=== PATIENT | female | born 1985 | race Caucasian/White ===

== ENCOUNTER 2019-11-11 10:20 | Emergency (ER) | payer BC, SELFPAY ==
--- NOTE | ~2019-11-11 | CT_ITS ---
EXAMINATION: CTA brain carotid EXAM DATE: 11/11/2019 13:07 INDICATION: Dizziness, headache. TECHNIQUE: Noncontrast head CT. Spiral CTA of the carotid arteries was performed with intravenous i njection 100 cc of Omnipaque 350. Axial, coronal, sagittal reformatted images reviewed. Additional r eformatted images created on dedicated 3-D workstation. NASCET comparable standard used to assess th e degree of arterial stenosis. Spiral CT angiogram cerebral arteries performed with the same intrave nous injection of contrast. Source images of the brain CTA transferred to dedicated workstation for 3 -D rotational image creation. Coronal, sagittal maximum intensity pixel images also reviewed. The d ose-length product (DLP) for this examination was 1595.71 mGy-cm. The exposure was tailored accordi ng to patient size, and iterative reconstruction (ASIR) was used as additional dose reduction techniq ue. There is no prior study for comparison. FINDINGS: There is 0% carotid stenosis bilaterally. Carotid siphons are unremarkable. The vertebral a rteries are codominant. There is no carotid or vertebral basilar arterial dissection or fibromuscula r dysplasia. There are no cerebral artery aneurysms. There is symmetric cerebral artery arborization. The sagittal, transverse and sigmoid sinuses enhance normally, no venous sinus thrombosis. Internal cerebral veins also enhance normally. There is no acute intraparenchymal hemorrhage. No evidence of intraparenchymal brain mass lesion. N o evidence of acute infarction. There is no mass effect or midline shift. There is no obstructive hyd rocephalus suspected. There are no extra-axial collections. There are no calvarial acute fractures. There are no areas of abnormal enhancement on the post contrast images. IMPRESSION: 1. No cervical arterial dissection or cerebral artery aneurysm. 2. Carotid bulbs 0% stenosis bilaterally. Reviewed, dictated and finalized at location A.
--- NOTE | 2019-11-11 10:49 | ED.DIZZY ---
HPI - Dizziness General Chief Complaint: Dizziness Stated Complaint: dizziness Time Seen by Provider: 11/11/19 10:29 Source: patient Mode of arrival: ambulatory Limitations: no limitations History of Present Illness HPI Narrative: A 34 y/o female presents to the ED with c/o dizziness. Pt states that she was rocking her child at 0930 today when she suddenly became severely dizzy. She notes that the episode of dizziness lasted 30 seconds and was described as a room spinning sensation. After the dizziness resolved, she became lightheaded and has been since. She reports nausea and slight NGUYEN, but denies vomiting, fever, chills, and cough. Pt does not note any aggravating or alleviating factors for her symptoms and denies having these types of symptoms before. She states that both of her children are sick with cold symptoms at home. MD elicited complaint: dizziness Onset (ago): hour(s) (1) Timing: sudden onset Description: room spinning History of similar symptoms: No Exacerbating factors: nothing Relieving factors: nothing Associated symptoms: nausea and other (Slight NGUYEN, lightheadedness) Related Data Allergies Allergy/AdvReac Type Severity Reaction Status Date / Time erythromycin base Allergy Unknown Hives Verified 09/09/18 10:16 Review of Systems Review of Systems: All systems reviewed & are unremarkable except as noted in HPI and below Constitutional: Constitutional: Denies chills and Denies fever(s) Cardiovascular: Cardiovascular: Reports lightheadedness Respiratory: Respiratory: Denies cough Gastrointestinal: Gastrointestinal: Reports nausea and Denies vomiting Neurologic: Reports dizziness and Reports headache(s) [facility] Past Medical History Medical History (Updated 11/11/19 @ 12:59 by Gladys Gloria MD) Healthy adult Surgical History Surgical History (Updated 11/11/19 @ 11:12 by Radha Wilkes) History of section History of tonsillectomy Family History Family History Father Hypertension Mother Hypertension Social History Social History Smoking status: Never smoker Alcohol intake: never Gender identity (if verbalized by the patient): Female Exam Const: General: no acute distress and well developed Orientation/consciousness: oriented to person, oriented to place, oriented to time and patient oriented x3 HENMT: Head: normocephalic Ears: external ears normal General nose exam: Normal external nose present Eyes: General: appearance normal, both eyes and all related structures Conjunctivae: conjunctivae normal Neck: Neck: normal visual inspection and full ROM Chest: Chest palpation & inspection: normal inspection of the chest and no tenderness Resp: Effort & Inspection: normal respiratory effort Auscultation: clear to auscultation bilaterally Cardio: Rate: regular rate Rhythm: regular rhythm GI: GI Palp: No abdominal tenderness and Yes Soft to palpation Skin: General skin exam: normal color and turgor normal Neuro: General: oriented to person, oriented to place, oriented to time and patient oriented x3 Cranial nerves: Yes CN's II-XII intact bilaterally Cognition (Neuro): normal cognition Speech: normal speech Motor exam (neuro): 5/5 motor strength present throughout Sensory Exam: normal sensation Coordination: [id number] test normal and [id number] test normal Extrem: General: normal to inspection, full ROM and no pedal edema Psych: Appearance: grossly normal Mental Status: mental status grossly normal Affect: normal affect Course Vital Signs Vital signs: Vital Signs Temperature 36.7 C 11/11/19 10:50 Pulse Rate 67 11/11/19 10:50 Respiratory Rate 12 11/11/19 10:50 Blood Pressure 122/71 11/11/19 10:50 Pulse Oximetry 98 11/11/19 10:50 Temperature 36.7 C 11/11/19 10:50 Pulse Rate 67 11/11/19 14:02 Respiratory Rate 13 11/11/19 14:02
[2019-11-11 10:50] VITALS: BP 122/71; PULSE 67; RESP 12; TEMP 36.7; O2SAT 98
--- NOTE | 2019-11-11 11:06 | ECG_ITS ---
Measurements Intervals [place] Rate: 67 P: 9 WA: 138 QRS: 46 QRSD: 81 T: 22 QT: 381 QTc: 402 Interpretive Statements SINUS RHYTHM NORMAL ECG Electronically Signed On 11-11-2019 11:38:32 CDT by Alex Redding D.O.
[2019-11-11 11:34] LABS: Basophils Percent Auto 0.3 % (0.2-1.2); Eosinophils Absolute Auto 0.1 K/mm3 (0-0.3); Eosinophils Percent Auto 1.1 % (0-4.4); Hematocrit 39.4 % (37.0-47.0); Hemoglobin 12.9 g/dL (12.0-15.0); Immature Granulocyte Absolute 0.02 K/mm3 (0.00-0.031); Immature Granulocyte Percent A 0.3 % (0-0.5); Lymphocytes Absolute Auto 2.05 K/mm3 (0.9-3.2); Lymphocytes Percent Auto 28.3 % (18.3-44.2); Mean Corpuscular HGB Conc 32.7 g/dl (32-36); Mean Corpuscular Hemoglobin 29.6 pg (26-34); Mean Corpuscular Volume 90.4 fl (80-100); Mean Platelet Volume 9.9 fl (7.4-10.4); Monocytes Absolute Auto 0.4 K/mm3 (0.1-0.6); Monocytes Percent Auto 5.7 % (2.6-8.5); Neutrophils Absolute Auto 4.7 K/mm3 (1.3-6.7); Neutrophils Percent Auto 64.3 % (45.5-73.1); Platelet Count Result 305 k/mm3 (150-375); Red Blood Count 4.36 M/mm3 (4.2-5.4); Red Cell Distribution Width 12.8 % (11.5-14.5); White Blood Count 7.3 K/mm3 (4.5-10.0)
[2019-11-11 11:45] LABS: Blood Urea Nitrogen 11 mg/dL (7-17); Calcium 9.2 mg/dL (8.4-10.2); Carbon Dioxide 27 mmol/L (22-30); Chloride 105 mmol/L (98-107); Estimated Glomerular Filt Rate > 60; Glucose 103 mg/dL (65-105); Sodium 139 mmol/L (137-145)
[2019-11-11 12:23] LABS: Add Urine Microscopic? YES; Appearance Urine Clear (Clear); Bacteria Urine Trace /hpf; Bilirubin Urine Negative (Negative); Blood Urine 1+ (Negative); Color Urine Straw (Yellow); Glucose Urine UA Negative (Negative); Ketones Urine Negative (Negative); Leukocyte Esterase Ur Negative LEU/UL (Negative); Nitrate Urine Negative (Negative); Protein Urine Negative (Negative); RBC Urine 0-2 /hpf (0-2); Specific Grav Ur 1.008 (1.001-1.035); Squamous Epithelial Cell Urine Many /hpf (Few); Urobilinogen Urine Negative mg/dL (<2.0); WBC Urine 0-3 /hpf
[2019-11-11] MEDS: MECLIZINE HCL 25 MG TABLET PO (12:53)
[2019-11-11 14:02] VITALS: BP 123/70; PULSE 67; RESP 13; O2SAT 98
== END 2019-11-11 14:27 | disposition home or self-care (01) ==
PROVIDERS: Emergency Provider Emergency Medicine; PCP Family Medicine
DX: R42 Dizziness and giddiness (principal)
CPT/HCPCS: 36415; 70496; 70498; 80048; 81001; 81025; 85025; 93005; 99284; A9270; Q9967

== ENCOUNTER 2021-03-26 07:06 | Outpatient (CLI) | payer BC, SELFPAY ==
[2021-03-29 07:05] LABS: Progesterone 22.2 ng/mL (***)
== END 2021-03-26 07:07 | disposition home or self-care (01) ==
PROVIDERS: PCP Family Medicine; Visit Provider Obstetrics & Gynecology
DX: Z31.41 Encounter for fertility testing (principal)
CPT/HCPCS: 36415; 84144

== ENCOUNTER 2021-03-28 18:34 | Emergency (ER) | payer BC, SELFPAY ==
[2021-03-28 18:42] VITALS: BP 121/92; PULSE 63; RESP 16; TEMP 36.5; O2SAT 100
--- NOTE | 2021-03-28 18:56 | ED.SKABFB ---
HPI - Skin/Abscess/Foreign Bdy General Chief complaint: Skin/Abscess/Foreign Body Stated complaint: Rash Time Seen by Provider: 03/28/21 18:46 Source: patient and RN notes reviewed Mode of arrival: ambulatory Limitations: no limitations History of Present Illness HPI narrative: Patient presents today complaining of 3-day history of rash that is and has been worsening since onset. Rash started 2 days after she was pulling weeds outside and had been pulling poison adriano. The rash is now spreading up her neck and onto her face as well as her extremities and trunk. She has been using Benadryl, calamine lotion, hydrocortisone at home without relief. MD complaint: rash Related Data Home Medications Medication Instructions Recorded Confirmed metformin 1,000 mg PO DAILY 03/28/21 03/28/21 Allergies Allergy/AdvReac Type Severity Reaction Status Date / Time erythromycin base Allergy Unknown Hives Verified 03/28/21 18:45 Review of Systems Review of Systems: CONSTITUTIONAL: Denies body aches, fever, chills, or sweats. EYES: Denies visual changes, redness, or discharge. ENT: Denies rhinorrhea, congestion, sore throat, or otalgia. CARDIOVASCULAR: Denies chest pain, palpitations, or edema. RESPIRATORY: Denies cough or dyspnea. GASTROINTESTINAL: Denies abdominal pain, nausea, vomiting, or diarrhea. GENITOURINARY: Denies dysuria or hematuria. SKIN: Denies wounds.+ Pruritic rash MUSCULOSKELETAL: Denies back pain, joint pain, or myalgia. NEUROLOGIC: Denies headache, numbness, tingling, or weakness. PSYCH: Denies depression or anxiety. [facility] Past Medical History Medical History Healthy adult Surgical History Surgical History History of section History of tonsillectomy Family History Family History Father Hypertension Mother Hypertension Social History Social History Smoking status: Never smoker Alcohol intake: never Gender identity (if verbalized by the patient): Female Comments At time of signature, I have reviewed and agree with nursing past medical, surgical, social and family history unless otherwise noted. Please see nursing chart for further information. There is no relevant family history pertinent to the presenting complaint Exam Narrative: GENERAL: Well-appearing, well-nourished, and in no acute distress. HEAD: Normocephalic, atraumatic. EYES: EOMI. No redness or drainage. Conjunctivae normal. ENT: Mucous membranes pink and moist. NECK: Normal AROM. CHEST: No respiratory distress. EXTREMITIES: Normal range of motion. No edema. SKIN: Warm, dry. Capillary refill normal. Normal skin turgor. Erythematous maculopapular rash to arms, upper legs, large patch to the lower abdomen and back, upper chest and neck, bilateral cheeks, forehead, and right jewish. NEURO: No focal deficits. Alert and oriented x3. Gait steady. PSYCH: Normal affect. No signs of depression or anxiety. Course Vital Signs Vital signs: Vital Signs Temperature 97.7 F 03/28/21 18:42 Pulse Rate 63 03/28/21 18:42 Respiratory Rate 16 03/28/21 18:42 Blood Pressure 121/92 H 03/28/21 18:42 Pulse Oximetry 100 03/28/21 18:42 Temperature 97.7 F 03/28/21 18:42 Pulse Rate 63 03/28/21 18:42 Respiratory Rate 16 03/28/21 18:42 Blood Pressure 121/92 H 03/28/21 18:42 Pulse Oximetry 100 03/28/21 18:42 Reviewed. Pt has been instructed to follow up with her PCP regarding her elevated blood pressure today. MDM - Skin/Abscess/Foreign Bdy Differential Diagnosis Differential diagnosis: Likely urticaria, cellulitis, eczema, insect bites, impetigo and contact dermatitis Critical Care Time Critical Care Time Critical Care Time: No Discharge Plan Discharge Clin
== END 2021-03-28 18:55 | disposition home or self-care (01) ==
PROVIDERS: Emergency Provider Nurse Practitioner; PCP Family Medicine
DX: L23.7 Allergic contact dermatitis due to plants, except food (principal); E28.2 Polycystic ovarian syndrome
CPT/HCPCS: 99213; G0463

== ENCOUNTER 2021-05-04 10:46 | Outpatient (CLI) | payer BC, SELFPAY ==
--- NOTE | ~2021-05-04 | US_ITS ---
EXAMINATION: US OB <=14 wk fetus w TV EXAM DATE: 05/04/2021 11:24 INDICATION: with hx of infertility. . 1st trimester. TECHNIQUE: Pelvic obstetrical transabdominal sonogram was performed by a technologist. There are mu ltiple grayscale and Doppler images available for interpretation. There are no earlier studies of th is gestation for comparison. FINDINGS: Patient has a bicornuate uterus with gestation sac identified in the right endometrial cavi ty. Gestation sac has somewhat flattened shape at 0.7 x 1.8 x 0.6 cm, with 1.0 cm mean sac diameter c orresponding to estimated gestational age by ultrasound of 5 weeks 4 days. Yolk sac is identified. There is no sonographic evidence of subchorionic hemorrhage. Could not confirm a viable pole a t this time. Left ovary morphologically normal. IMPRESSION: 1. Early intrauterine gestation sac. Can't confirm viable . Consider 1-2 week follow-up pelv ic sonogram. 2. Bicornuate uterus. I discussed this case with the patient in my office at conclusion of exam. Reviewed, dictated and finalized at location A. IMPRESSION: 1. Early intrauterine gestation sac. Can't confirm viable . Consider 1 -2 week follow-up pelvic sonogram. 2. Bicornuate uterus. I discussed this case with the patient in my office at conclusion of exam.
== END 2021-05-04 10:47 | disposition home or self-care (01) ==
LOC: ANHIMG 10:49
PROVIDERS: PCP Family Medicine; Visit Provider Obstetrics & Gynecology Gynecology
DX: O09.01 Supervision of pregnancy with history of infertility, first trimester (principal); O34.01 Maternal care for unspecified congenital malformation of uterus, first trimester; Q51.3 Bicornate uterus
CPT/HCPCS: 76801; 76817

== ENCOUNTER 2021-07-05 08:05 | Outpatient (RCR) | payer BC, SELFPAY ==
[2021-06-01 09:26] LABS: Beta HCG Quantitative 201.75 mIU/ML
[2021-06-15 14:09] LABS: Beta HCG Quantitative 26.18 mIU/ML
[2021-06-22 08:50] LABS: Beta HCG Quantitative 7.44 mIU/ML
[2021-07-05 11:55] LABS: Beta HCG Quantitative < 2.39 mIU/ML
== END 2021-08-09 23:59 | disposition home or self-care (01) ==
LOC: ANHLAB 08:05
PROVIDERS: PCP Family Medicine; Visit Provider Obstetrics & Gynecology
DX: O03.9 Complete or unspecified spontaneous abortion without complication (principal)
CPT/HCPCS: 36415; 84702

== ENCOUNTER 2022-06-22 06:48 | Outpatient (CLI) | payer BC, SELFPAY ==
[2022-06-22 07:38] LABS: Alanine Aminotransferase 13 U/L (6-35); Alkaline Phosphatase 52 U/L (38-126); Anion Gap 7 mmol/L (8-16); Aspartate Amino Transferase 25 U/L (14-36); Bilirubin,Total 0.4 mg/dL (0.2-1.3); Blood Urea Nitrogen 9 mg/dL (7-17); Calcium 8.8 mg/dL (8.4-10.2); Carbon Dioxide 27 mmol/L (22-30); Chloride 104 mmol/L (98-107); Cholesterol 173 mg/dL (0-200); Estimated Glomerular Filt Rate > 60; Glucose 93 mg/dL (65-110); HDL Direct 65 mg/dL; Potassium 4.2 mmol/L (3.4-5.0); Sodium 138 mmol/L (137-145); Triglycerides 41 mg/dL (<150)
[2022-06-22 07:42] LABS: Amorphous Sediment Urine Few; Appearance Urine Slightly Cloudy (Clear); Bilirubin Urine Negative (Negative); Blood Urine Negative (Negative); Color Urine Yellow (Yellow); Glucose Urine UA Negative (Negative); Ketones Urine Negative (Negative); Leukocyte Esterase Ur Negative LEU/UL (NEGATIVE); Nitrate Urine Negative (Negative); Protein Urine Trace mg/dL (Negative); Squamous Epithelial Cell Urine Few /hpf (Few); Urobilinogen Urine 0.2 mg/dL (<2.0); WBC Urine 0-3 /hpf (0-3); pH Urine 7.5 (5.0-9.0)
[2022-06-22 07:49] LABS: LDL Cholesterol Direct 83 mg/dL
[2022-06-22 07:54] LABS: Add Urine Microscopic? YES
[2022-06-22 08:18] LABS: Basophils Percent Auto 0.4 % (0.2-1.2); Eosinophils Absolute Auto 0.1 K/mm3 (0-0.3); Eosinophils Percent Auto 1.7 % (0-4.4); Hematocrit 37.9 % (37.0-47.0); Hemoglobin 12.2 g/dL (12.0-15.0); Immature Granulocyte Absolute 0.01 K/mm3 (0.00-0.031); Immature Granulocyte Percent A 0.1 % (0-0.5); Lymphocytes Absolute Auto 2.29 K/mm3 (0.9-3.2); Lymphocytes Percent Auto 32.4 % (18.3-44.2); Mean Corpuscular HGB Conc 32.2 g/dl (32-36); Mean Corpuscular Volume 93.1 fl (80-100); Mean Platelet Volume 9.7 fl (7.4-10.4); Monocytes Absolute Auto 0.6 K/mm3 (0.1-0.6); Monocytes Percent Auto 8.2 % (2.6-8.5); Neutrophils Percent Auto 57.2 % (45.5-73.1); Platelet Count Result 318 k/mm3 (150-375); Red Blood Count 4.07 M/mm3 (4.2-5.4); Red Cell Distribution Width 13.2 % (11.5-14.5); White Blood Count 7.1 K/mm3 (4.5-10.0)
[2022-06-22 09:21] LABS: Vitamin D 25 Hydroxy 26.8 ng/mL
== END 2022-06-22 06:49 | disposition home or self-care (01) ==
LOC: ANHLAB 06:50
PROVIDERS: PCP Family Medicine; Visit Provider Nurse Practitioner Family
DX: Z00.00 Encounter for general adult medical examination without abnormal findings (principal); E55.9 Vitamin D deficiency, unspecified; E78.2 Mixed hyperlipidemia
CPT/HCPCS: 36415; 80053; 80061; 81001; 82306; 84443; 85025

== ENCOUNTER 2023-05-09 08:51 | Outpatient (CLI) | payer OTHER, SELFPAY ==
--- NOTE | ~2023-05-09 | US_ITS ---
EXAMINATION:US_VDOPREFBI_US INDICATION:Venous insufficiency TECHNIQUE: Multiple grayscale, color flow and Doppler images of the right and left lower extremity de ep venous systems were obtained and reviewed. COMPARISON:No prior studies for comparison. FINDINGS: The common femoral, superficial femoral and popliteal veins demonstrate normal respiratory variation, augmentation and compressibility. Color flow is also seen within the posterior tibial, pe roneal, greater saphenous and profunda veins. No evidence for venous reflux. IMPRESSION: 1: No lower extremity deep venous thrombosis. No venous reflux. Reviewed, dictated and finalized at location B.
== END 2023-05-09 08:52 | disposition home or self-care (01) ==
PROVIDERS: PCP Family Medicine
DX: I87.2 Venous insufficiency (chronic) (peripheral) (principal)
CPT/HCPCS: 93970

== ENCOUNTER 2025-08-03 11:31 | Outpatient (CLI) | payer OTHER, SELFPAY ==
[2025-08-03 11:52] LABS: Hematocrit 37.8 % (37.0-47.0); Hemoglobin 12.4 g/dL (12.0-15.0); Mean Corpuscular HGB Conc 32.8 g/dl (32-36); Mean Corpuscular Hemoglobin 29.8 pg (26-34); Mean Corpuscular Volume 90.9 fl (80-100); Platelet Count Result 332 k/mm3 (150-375); Red Blood Count 4.16 M/mm3 (4.2-5.4); White Blood Count 6.9 K/mm3 (4.5-10.0)
[2025-08-03 12:13] LABS: Add Urine Microscopic? YES; Alanine Aminotransferase 25 U/L (6-35); Albumin Level 4.3 g/dL (3.5-5.1); Alkaline Phosphatase 54 U/L (38-126); Anion Gap 3 mmol/L (4-12); Appearance Urine Clear (Clear); Aspartate Amino Transferase 37 U/L (14-36); Bilirubin,Total 0.3 mg/dL (0.2-1.3); Blood Urea Nitrogen 10 mg/dL (7-17); Calcium 9.4 mg/dL (8.4-10.2); Carbon Dioxide 31 mmol/L (22-30); Chloride 104 mmol/L (98-107); Cholesterol 189 mg/dL (0-200); Estimated Glomerular Filt Rate > 60; Glucose 91 mg/dL (65-110); Glucose Urine UA Negative (Negative); HDL Direct 69 mg/dL; Leukocyte Esterase Ur 1+ LEU/UL (Negative); Need Manual Microscopic Reviewed; Nitrate Urine Negative (Negative); Non Pathogenic Casts 0-2; Potassium 3.9 mmol/L (3.4-5.0); Sodium 138 mmol/L (137-145); Specific Grav Ur 1.006 (1.001-1.035); Total Protein 7.0 g/dL (6.3-8.2); Triglycerides 64 mg/dL (<150)
[2025-08-03 12:48] LABS: Thyroid Stimulating Hormone 0.569 uIU/mL (0.465-4.680)
[2025-08-03 13:23] LABS: Vitamin B12 644.0 pg/mL (239-931)
== END 2025-08-03 11:32 | disposition home or self-care (01) ==
PROVIDERS: PCP Family Medicine; Visit Provider Family Medicine
DX: Z00.00 Encounter for general adult medical examination without abnormal findings (principal); E55.9 Vitamin D deficiency, unspecified; E53.8 Deficiency of other specified B group vitamins; E78.5 Hyperlipidemia, unspecified; R53.83 Other fatigue
CPT/HCPCS: 36415; 80053; 80061; 81001; 82306; 82607; 82746; 84443; 85027